=== PATIENT | female | born 1970 | race Caucasian/White ===

== ENCOUNTER 2016-09-30 14:56 | Inpatient (IN) | payer MEDICAID ==
[~2016-09-30] VITALS: Ht 149.9 cm; Wt 79.4 kg
[2016-09-30 15:05] VITALS: BP 164/99; PULSE 104; RESP 16; TEMP 97.7; O2SAT 96
--- NOTE | 2016-09-30 15:13 | NUR ---
Patient triaged and placed in waiting room. Patient appears in no acute distress at this time. Accompanied by SELF, awaiting available bed, and MD notified of need for MSE.
--- NOTE | 2016-09-30 15:13 | NUR ---
Note cliffordprudencio in EDM - 09/30/16 at 1617 by TEAGAN Pt report received from BE Kennedy. Pt c/o urinary frequency and hesitancy since Tuesday. Seen by PMD and Rx Cipro. Pt states that symptoms haven't resolved and she feels worse with generalized abd pain. Pt denies N/V/D.
--- NOTE | 2016-09-30 15:45 | NUR ---
Ana acevedo in ED - 09/30/16 at [address] Smith at bedside to assess pt.
--- NOTE | 2016-09-30 16:00 | NUR ---
Pt placed to ER bed 06 and report received from BE Kennedy. Pt c/o urinary frequency and hesitancy since Tuesday. Seen by PMD and Rx Cipro. Pt states that symptoms haven't resolved and she feels worse with generalized abd pain. Pt denies N/V/D.
--- NOTE | 2016-09-30 16:10 | NUR ---
Dr. Smith at bedside to assess pt.
[2016-09-30 16:11] LABS: BILIRUBIN,URINE NEGATIVE (NEGATIVE); BLOOD, URINE 2+ (NEGATIVE); CLARITY/URINE CLEAR (CLEAR); COLOR,URINE YELLOW (YELLOW); GLUCOSE,URINE NEGATIVE (NEGATIVE); KETONES,URINE NEGATIVE (NEGATIVE); LEUKOCYTE ESTERASE ,URINE 1+ (NEGATIVE); NITRITE, URINE NEGATIVE (NEGATIVE); PH,URINE 6.5 (5.0-8.0); PROTEIN URINE NEGATIVE (NEGATIVE); UROBILINOGEN,URINE 0.2 (0.2-1.0)
[2016-09-30 16:32] LABS: BACTERIA,URINE FEW /HPF (None Seen); WBC,URINE 20-50 /HPF (0-3)
[2016-09-30 16:33] LABS: MUCUS,URINE None Seen /LPF (None Seen)
[2016-09-30] MEDS ORDERED: MORPHINE SULFATE 10 MG/ML VIAL IVP ONE (16:45)
[2016-09-30] MEDS ORDERED: ONDANSETRON HCL 4 MG/2 ML VIAL IVP ONE (16:45)
[2016-09-30] MEDS ORDERED: NACL 0.9% 1,000 ML IV ONE ×2 (16:45→19:30)
[2016-09-30] MEDS ORDERED: cefTRIAXone 1 GM in D5W 50 ML IV ONE (16:45)
[2016-09-30] MEDS ORDERED: cefTRIAXone 1 GM VIAL ONE (16:57)
[2016-09-30 16:59] LABS: BASOPHILS # (AUTO) 0.3 K/uL (0.0-0.2); BASOPHILS % (AUTO) 1.6 % (0.0-2.0); EOSINOPHILS # (AUTO) 0.1 K/uL (0.0-0.4); EOSINOPHILS % (AUTO) 0.8 % (0.0-4.0); HEMATOCRIT 43.1 % (36-48); HEMOGLOBIN 14.1 g/dL (12.0-16.0); LYMPHOCYTES # (AUTO) 1.7 K/uL (1.0-5.5); LYMPHOCYTES % (AUTO) 9.2 % (20.5-51.5); MEAN CORPUSCULAR HEMOGLOBIN 28 pg (27-31); MEAN CORPUSCULAR HGB CONC 33 % (32-36); MEAN CORPUSCULAR VOLUME 86 fL (79.0-98.0); MONOCYTES # (AUTO) 1.2 K/uL (0.0-1.0); MONOCYTES % (AUTO) 6.5 % (1.7-9.3); NEUTROPHILS # (AUTO) 15.3 K/uL (1.8-7.7); NEUTROPHILS % (AUTO) 81.9 % (40.0-70.0); PLATELET COUNT (AUTO) 202 K/uL (130-430); RED BLOOD CELL COUNT(AUTO) 4.99 MIL/uL (4.2-6.2); RED CELL DISTRIBUTION WIDTH 13.5 % (9.0-15.0); WHITE BLOOD COUNT (AUTO) 18.6 K/uL (4.8-10.8)
[2016-09-30 17:09] LABS: CALCIUM 8.3 mg/dL (8.4-11.0); CREATININE 1.13 mg/dL (0.55-1.30); POTASSIUM 3.6 mmol/L (3.5-5.1)
[2016-09-30 17:14] LABS: ALBUMIN 3.2 g/dL (3.4-4.8); TOTAL BILIRUBIN 0.6 mg/dL (0.0-1.0); TOTAL PROTEIN, SERUM 7.6 g/dL (6.4-8.3)
--- NOTE | 2016-09-30 18:00 | NUR ---
Pt denies c/o pain or discomfort, no needs verbalized at this time.
--- NOTE | 2016-09-30 19:40 | NUR ---
ADMISSION NOTE Received patient from ER via sean, received report from ALAINA LR. Patient admitted with diagnosis of PYELONEPHRITIS. Patient oriented to hospital routine, call light, toileting and safety-patient verbalized understanding.
[2016-09-30 19:47] VITALS: BP 151/89; PULSE 98; RESP 18; TEMP 98.2; O2SAT 100
--- NOTE | 2016-09-30 19:49 | NUR ---
Patient will be admitted to care of . Admitted to Med Surg unit. Will go to room 118-B. Belongings list completed. Summary report printed. Report given to BE Cid.
--- NOTE | 2016-09-30 20:30 | NUR ---
2030 UNIT ADMISSION NOTE Patient in bed resting comfortably. She states she is not in pain at the moment. Admitting nurse Jose Roberto LR at the bed side conducting admission assessment. No S/S of distress noted. IV fluids and Levaquin will be administered per MD order. Fall precautions in place.
[2016-09-30] MEDS: LEVOFLOXACIN 500 MG/D5W 100 ML IV SCH (20:58)
[2016-09-30] MEDS: NACL 0.9% 1,000 ML IV SCH (20:59)
[2016-09-30] MEDS ORDERED: LORazepam 2 MG/ML VIAL IVP PRN (21:00)
[2016-09-30] MEDS ORDERED: POTASSIUM CHLORIDE 10 MEQ TAB.PRT.SR PO PRN (21:00)
[2016-09-30] MEDS ORDERED: MAGNESIUM SULFATE 50 ML IV PRN (21:00)
[2016-09-30] MEDS ORDERED: ZOLPIDEM TARTRATE 5 MG TABLET PO PRN (21:00)
[2016-09-30] MEDS ORDERED: DOCUSATE SODIUM 100 MG CAPSULE PO PRN (21:00)
[2016-09-30] MEDS ORDERED: MORPHINE 2 MG/ML INJ. SYRINGE IVP PRN (21:00)
[2016-09-30] MEDS: LACTOBACILLUS RHAMNOSUS GG 1 CAP CAPSULE PO SCH (22:07)
[2016-09-30] MEDS: HEPARIN SODIUM,PORCINE 5000 UNITS/ML VIAL SUBCUT SCH (22:12)
--- NOTE | 2016-09-30 22:30 | NUR ---
2230 ROUNDS Patient in bed resting. She stated that she is in pain and asked for pain medication. Morphine 2 mg PRN given per MD order. No other S/S of distress noted. Patient is alert, oriented X 4. IV fluids are running. Fall precautions in place.
[2016-09-30] MEDS: MORPHINE 2 MG/ML INJ. SYRINGE IVP PRN (23:12)
[2016-10-01] VITALS (7 sets, daily range): BP systolic 129–154; BP diastolic 67–92; PULSE 80–121; RESP 16–20; TEMP 97–99.4; O2SAT 94–98; Ht 149.9 cm; Wt 79.4 kg
--- NOTE | 2016-10-01 00:40 | NUR ---
0040 ROUNDS Patient in bed sleeping. No S/S of distress noted, no pain. Bed in low position, call light within reach.
--- NOTE | 2016-10-01 02:50 | NUR ---
0250 ROUNDS Patient in bed sleeping. No pain or any distress noted. Fall precautions in place.
--- NOTE | 2016-10-01 04:30 | NUR ---
0430 NOTE Patient in bed resting. She stated that she is in increasing pain and she would like her pain medication. The nurse administered Morphine 2 mg PRN per MD order. No other S/S of distress noted. Patient is alert, oriented x 4. Fall precautions in place.
[2016-10-01] MEDS: MORPHINE 2 MG/ML INJ. SYRINGE IVP PRN ×5 (04:33→21:57)
[2016-10-01 06:09] LABS: BASOPHILS # (AUTO) 0.5 K/uL (0.0-0.2); BASOPHILS % (AUTO) 3.3 % (0.0-2.0); EOSINOPHILS # (AUTO) 0.2 K/uL (0.0-0.4); EOSINOPHILS % (AUTO) 1.2 % (0.0-4.0); HEMATOCRIT 41.3 % (36-48); HEMOGLOBIN 13.4 g/dL (12.0-16.0); LYMPHOCYTES # (AUTO) 1.6 K/uL (1.0-5.5); LYMPHOCYTES % (AUTO) 10.6 % (20.5-51.5); MEAN CORPUSCULAR HEMOGLOBIN 28 pg (27-31); MEAN CORPUSCULAR HGB CONC 33 % (32-36); MEAN CORPUSCULAR VOLUME 86 fL (79.0-98.0); MONOCYTES # (AUTO) 1.2 K/uL (0.0-1.0); MONOCYTES % (AUTO) 7.9 % (1.7-9.3); NEUTROPHILS # (AUTO) 11.5 K/uL (1.8-7.7); PLATELET COUNT (AUTO) 205 K/uL (130-430); RED CELL DISTRIBUTION WIDTH 13.6 % (9.0-15.0)
[2016-10-01 06:12] LABS: CALCIUM 7.8 mg/dL (8.4-11.0); CREATININE 1.1 mg/dL (0.55-1.30); POTASSIUM 3.9 mmol/L (3.5-5.1)
--- NOTE | 2016-10-01 07:30 | NUR ---
FINAL NOTE - [employer] Patient in bed resting comfortably. Her primary doctor Dr. Gregory placed an order for CT-scan of the abdomen which requires the patient to be NPO. That information was conveyed to the day shift nurse Alem LR as well as to the patient. No S/S of distress or pain noted. PAtient's needs met throughout the whole shift. Report given to the day shift nurse Alem LR.
--- NOTE | 2016-10-01 07:30 | NUR ---
am notes: patient is aaox 4. afebrile. vss stable. on npo status for ct of abdomen and pelves soon. lungs bilaterally clear. abdomen soft and non distended. no pain nor distress noted. has iv access on the left ac #20. with normal saline at 90cc/hr infusing on well. call lights within reach. safety measures maintained. informed patient to call for assistance. bed in low position.
[2016-10-01] MEDS: NACL 0.9% 1,000 ML IV SCH ×2 (07:46→21:49)
[2016-10-01] MEDS ORDERED: DIATR MEGLU/DIATRIZ SOD 30 ML SOLUTION PO ONE (08:39)
--- NOTE | 2016-10-01 08:50 | NUR ---
complained of pain. morphine 2mg iv given. made comfortable. still on npo status. heparin sodium subcu given left abdomen.
[2016-10-01] MEDS: HEPARIN SODIUM,PORCINE 5000 UNITS/ML VIAL SUBCUT SCH ×2 (08:52→22:05)
--- NOTE | 2016-10-01 09:40 | NUR ---
oral contrast given by radiologist at the bedside and explained the procedure.
--- NOTE | 2016-10-01 11:00 | NUR ---
order picker by radiologist for ct of abdomen and pelves.
[2016-10-01] MEDS: LACTOBACILLUS RHAMNOSUS GG 1 CAP CAPSULE PO SCH ×2 (12:43→21:55)
--- NOTE | 2016-10-01 12:48 | NUR ---
morphine 2 mg iv given. assists on adls.
--- NOTE | 2016-10-01 13:00 | NUR ---
morphine 2 mg iv given at this time. assisted to the bathroom
--- NOTE | 2016-10-01 15:53 | NUR ---
CALLED ATTENDING MD DR PALACIOS, RE: RESULTS OF THE CT OF ABD. SPOKE TO NESTOR
--- NOTE | 2016-10-01 15:56 | NUR ---
CT ABDOMEN/PELVIS RESULT SUZANNE Holcomb INFORMED WILL CONTINUE TO MONITOR.
[2016-10-01] MEDS: ONDANSETRON HCL 4 MG/2 ML VIAL IVP PRN (17:20)
--- NOTE | 2016-10-01 17:30 | NUR ---
morphine 2 mg iv given. made comfortable.
--- NOTE | 2016-10-01 19:40 | NUR ---
sbar report given to incoming nurse Dionisio LR
--- NOTE | 2016-10-01 19:50 | NUR ---
initial nursing notes: Patient is awake. Patient has IV fluid infusing on the left forearm IV access. Patient denies of having pain at this time.
--- NOTE | 2016-10-01 21:50 | NUR ---
nursing rounds: Patient will receive pain medication for her abdominal pain. Will recheck patient's pain level a few minutes after receiving pain medication.
[2016-10-01] MEDS: LEVOFLOXACIN 500 MG/D5W 100 ML IV SCH (21:52)
--- NOTE | 2016-10-01 22:30 | NUR ---
nursing rounds: Patient stated that the pain medication was effective. Patient stated that her abdominal pain was gone.
[2016-10-02] VITALS (8 sets, daily range): BP systolic 125–149; BP diastolic 77–86; PULSE 88–111; RESP 16–18; TEMP 96.3–99; O2SAT 93–98
--- NOTE | 2016-10-02 00:15 | NUR ---
Rounds Patient is currently resting in bed. Call light is within reach. Instructed to use it whenever in need of assistance.
--- NOTE | 2016-10-02 00:30 | NUR ---
nursing rounds: Patient is asleep in bed. Patient has no shortness of breath.
--- NOTE | 2016-10-02 02:30 | NUR ---
nursing rounds: Patient is sleeping in bed. Call light within patient's reach.
[2016-10-02] MEDS: MORPHINE 2 MG/ML INJ. SYRINGE IVP PRN ×2 (02:41→09:16)
[2016-10-02] MEDS: ONDANSETRON HCL 4 MG/2 ML VIAL IVP PRN ×2 (02:42→09:22)
--- NOTE | 2016-10-02 04:30 | NUR ---
nursing rounds: Patient received another dose of pain medication for her abdominal pain. Patient is currently asleep with no respiratory distress.
[2016-10-02] MEDS: NACL 0.9% 1,000 ML IV SCH ×2 (05:43→20:59)
--- NOTE | 2016-10-02 06:16 | NUR ---
nursing rounds: Patient is ambulatory to the bathroom with a stable gait.
[2016-10-02 07:14] LABS: HEMATOCRIT 42.4 % (36-48); HEMOGLOBIN 13.7 g/dL (12.0-16.0); MEAN CORPUSCULAR HEMOGLOBIN 28 pg (27-31); MEAN CORPUSCULAR HGB CONC 32 % (32-36); MEAN CORPUSCULAR VOLUME 86 fL (79.0-98.0); PLATELET COUNT (AUTO) 196 K/uL (130-430); RED BLOOD CELL COUNT(AUTO) 4.95 MIL/uL (4.2-6.2); RED CELL DISTRIBUTION WIDTH 13.2 % (9.0-15.0); WHITE BLOOD COUNT (AUTO) 10.6 K/uL (4.8-10.8)
[2016-10-02 07:24] LABS: CALCIUM 8.4 mg/dL (8.4-11.0); CREATININE 1.07 mg/dL (0.55-1.30); POTASSIUM 3.8 mmol/L (3.5-5.1)
--- NOTE | 2016-10-02 07:25 | NUR ---
am notes: patient aaox 4. afebrile. vss stable. lungs bilaterally clear. abdomen soft but bit distended. has iv access on the left ac #20 with normal saline at 90cc/hr infusing on well. call lights within reach. safety measures maintained. informed patient to call for assistance. no pain nor distress noted at the time. bed in low position.
--- NOTE | 2016-10-02 07:33 | NUR ---
closing nursing notes: Patient is awake, alert and oriented X 4. Patient is in no acute respiratory distress. No episodes of fall and no injuries throughout the shift supervisor rn. Provided nursing report to incoming morning shift nurse, BE Ferrara, at patient's bedside.
[2016-10-02 07:55] LABS: BASOPHILS % (MANUAL) 0 % (0-2); EOSINOPHILS % (MANUAL) 1 % (0-7); LYMPHOCYTES % (MANUAL) 11 % (20-46); MONOCYTES % (MANUAL) 11 % (0-11)
[2016-10-02] MEDS: LACTOBACILLUS RHAMNOSUS GG 1 CAP CAPSULE PO SCH ×2 (09:09→21:00)
--- NOTE | 2016-10-02 09:16 | NUR ---
morphine 2 mg iv given. instructed to walk more often
[2016-10-02] MEDS: HEPARIN SODIUM,PORCINE 5000 UNITS/ML VIAL SUBCUT SCH ×2 (09:22→21:04)
--- NOTE | 2016-10-02 09:24 | NUR ---
due medication given. sitting on chair
[2016-10-02] MEDS ORDERED: BISACODYL 10 MG/SUPPOSITORY RC ONE (09:45)
[2016-10-02] MEDS ORDERED: LEVO500T20 PO (09:45)
[2016-10-02] MEDS ORDERED: BISACODYL 5 MG TABLET.DR (DULCOLAX) PO ONE (09:45)
--- NOTE | 2016-10-02 09:46 | NUR ---
Dr Gregory came and see the patient. informed Alem LR patient can go home today, if patient was able to defecate. and made orders
--- NOTE | 2016-10-02 10:14 | NUR ---
Notes Registered preferred pharmacy ([facility] has been called and verified prescription for levaquin has been received.
--- NOTE | 2016-10-02 12:00 | NUR ---
tried to go the bathroom twice. but no bowel movement yet. passing gas only.
--- NOTE | 2016-10-02 14:00 | NUR ---
ambulate in the hallway many times. passing gas.
[2016-10-02] MEDS ORDERED: NA PHOS,M-B/NA PHOS,DI-BA 118 ML (FLEET ENEMA) RC ONE ×2 (14:30→20:15)
--- NOTE | 2016-10-02 16:00 | NUR ---
had prune juice x 2. able to ambulate to the hallway many times. patient is passing out gases many times.
[2016-10-02] MEDS: ACETAMINOPHEN 325 MG TABLET PO PRN (16:01)
--- NOTE | 2016-10-02 18:22 | NUR ---
paged for Dr Gregory, dialed . s/w Lynda.
--- NOTE | 2016-10-02 18:36 | NUR ---
awaiting for Dr Gregory to call back to hold discharge patient is so bloated at this time. not able to defecate..
--- NOTE | 2016-10-02 18:39 | NUR ---
a new iv access placed at the left forearm #22. saline lock.
--- NOTE | 2016-10-02 19:01 | NUR ---
Agustín called Dr Gregory a second call.
--- NOTE | 2016-10-02 19:05 | NUR ---
second page for Dr Gregory, dialed . s/w Lynda.
--- NOTE | 2016-10-02 19:30 | NUR ---
sbar report given to incoming nurse Prudencio LR
--- NOTE | 2016-10-02 19:41 | NUR ---
PAGED DR PALACIOS: LEFT VOICEMAIL, NO LIVE ANSWER SERVICE [phone]
--- NOTE | 2016-10-02 19:57 | NUR ---
Dr Gregory's answering service returned call. s/w Lynda, stated that they will try to get a hold of Dr Gregory.
--- NOTE | 2016-10-02 20:08 | NUR ---
Opening Note Report received from the day shift RN. Patient is in stable condition. Is inquiring if she is being discharged today. Patient has not had a bowl movement despite of PRN medications received during the day. Will follow up with Dr. Gregory. IV is on the LFA 22g running NS@90ml/hr. Call light is within reach. Instructed patient to use it whenever in need of assistance.
--- NOTE | 2016-10-02 20:30 | NUR ---
Spoke with MD Spoke with Dr. Gregory. Explained to MD that patient has not had a bowl movement. Orders for fleet enema x 2 time were received. MD also stated to hold dc if patient does not have a bowl movement by 2200.
[2016-10-02] MEDS: LEVOFLOXACIN 500 MG/D5W 100 ML IV SCH (21:00)
--- NOTE | 2016-10-02 22:20 | NUR ---
Rounds Administered two fleet enema to patient per MD order. Patient was not able to have a bowl movement. Will hold discharge for tonight. Patient stated she noticed bloody vaginal discharge when wiping. Will follow up with Dr. Gregory.
--- NOTE | 2016-10-03 00:15 | NUR ---
Rounds Patient is resting in bed. Call light is within reach. Instructed to use it whenever in need of assistance.
[2016-10-03 00:30] VITALS: BP 139/84; PULSE 87; RESP 18; TEMP 97.8
--- NOTE | 2016-10-03 02:15 | NUR ---
Rounds Patient is resting in bed. Call light is within reach.
[2016-10-03] MEDS: MORPHINE 2 MG/ML INJ. SYRINGE IVP PRN ×5 (03:44→20:48)
--- NOTE | 2016-10-03 04:15 | NUR ---
Rounds Patient is currently sleeping in bed. Call light is within reach.
[2016-10-03 04:30] VITALS: BP 136/86; PULSE 84; RESP 18; TEMP 98.3; O2SAT 95
--- NOTE | 2016-10-03 06:26 | NUR ---
Opening Note Patient is currently resting in bed. Call light is within reach. Instructed to use it whenever in need of assistance. IV is on the [employer] 22g running NS@90. Will give report to the oncoming nurse.
[2016-10-03 07:06] LABS: HEMATOCRIT 39.9 % (36-48); HEMOGLOBIN 13.3 g/dL (12.0-16.0); MEAN CORPUSCULAR HEMOGLOBIN 28 pg (27-31); MEAN CORPUSCULAR HGB CONC 33 % (32-36); MEAN CORPUSCULAR VOLUME 85 fL (79.0-98.0); PLATELET COUNT (AUTO) 198 K/uL (130-430); RED BLOOD CELL COUNT(AUTO) 4.67 MIL/uL (4.2-6.2); RED CELL DISTRIBUTION WIDTH 13.1 % (9.0-15.0)
[2016-10-03 07:19] LABS: CALCIUM 8.2 mg/dL (8.4-11.0); CREATININE 1.05 mg/dL (0.55-1.30); POTASSIUM 3.8 mmol/L (3.5-5.1)
[2016-10-03 07:36] LABS: WHITE BLOOD COUNT (AUTO) 8.1 K/uL (4.8-10.8)
[2016-10-03 08:04] VITALS: BP 140/81; PULSE 98; RESP 18; TEMP 98.3; O2SAT 98
[2016-10-03] MEDS: LACTOBACILLUS RHAMNOSUS GG 1 CAP CAPSULE PO SCH ×2 (08:06→20:47)
[2016-10-03] MEDS: HEPARIN SODIUM,PORCINE 5000 UNITS/ML VIAL SUBCUT SCH (08:09)
--- NOTE | 2016-10-03 09:21 | NUR ---
AM ROUNDS: No s/s of distress noted. Will continue to monitor.
[2016-10-03 09:57] LABS: ATYPICAL LYMPHOCYTES % 0 % (0-0); BAND % (MANUAL) 5 % (0-6); BASOPHILS % (MANUAL) 0 % (0-2); EOSINOPHILS % (MANUAL) 0 % (0-7); LYMPHOCYTES % (MANUAL) 15 % (20-46); MONOCYTES % (MANUAL) 19 % (0-11)
--- NOTE | 2016-10-03 10:11 | NUR ---
PATIENT RESTING: Patient resting quietly. No acute distress noted. Vital signs within normal range.
[2016-10-03] MEDS: NACL 0.9% 1,000 ML IV SCH ×2 (10:16→15:03)
[2016-10-03] MEDS ORDERED: NA PHOS,M-B/NA PHOS,DI-BA 118 ML (FLEET ENEMA) RC ONE (10:45)
[2016-10-03] MEDS ORDERED: MILK OF MAGNESIA 30 ML UDC PO ONE (10:45)
[2016-10-03] MEDS ORDERED: LACTULOSE 20 GM/30 ML UDC PO ONE (10:45)
--- NOTE | 2016-10-03 11:37 | NUR ---
PATIENT OFF FLOOR: To X-ray for KUB.
--- NOTE | 2016-10-03 11:58 | NUR ---
OBGYN consult: called consult for Dr. roblero (Laura Espinoza is cotton tier), regarding vaginal bleed, ordered by Colt, spoke with Nyla.
[2016-10-03 12:00] VITALS: BP 151/90; PULSE 105; RESP 20; TEMP 99.1; O2SAT 96
--- NOTE | 2016-10-03 12:17 | NUR ---
ROUNDS: Patient still off floor.
--- NOTE | 2016-10-03 13:13 | NUR ---
RETURNED FROM FLOOR: Patient returned from X-ray.
--- NOTE | 2016-10-03 13:30 | NUR ---
COMMUNICATION: Spoke with Dr. Gaytan who is occupational ther for Dr. Martinez. Dr. Gaytan states he does not come to this hospital and to find another consulting doctor.
--- NOTE | 2016-10-03 13:39 | NUR ---
OBGYN Consult: for Dr. Choe, regarding vaginal bleed, ordered by Dr. Gregory, spoke with
--- NOTE | 2016-10-03 14:10 | NUR ---
PATIENT RESTING: Patient resting quietly. No acute distress noted. Vital signs within normal range.
--- NOTE | 2016-10-03 14:15 | NUR ---
COMMUNICATION: Dr. Choe called back. Will not see patient. Will see [facility] patients only.
--- NOTE | 2016-10-03 14:21 | NUR ---
OB Consult: for Dr. Tarun Sweeney (Dr. Lagos is road freight conductor), regarding vaginal bleed, ordered by Dr. Gregory, spoke with Nyla.
[2016-10-03 16:00] VITALS: BP 145/87; PULSE 102; RESP 20; TEMP 100; O2SAT 96
--- NOTE | 2016-10-03 16:05 | NUR ---
PATIENT RESTING: Patient resting quietly. No acute distress noted. Vital signs within normal range.
[2016-10-03] MEDS: ACETAMINOPHEN 325 MG TABLET PO PRN (16:58)
[2016-10-03 17:54] VITALS: TEMP 99.1
--- NOTE | 2016-10-03 18:00 | NUR ---
CLOSING NOTE: All needs met. Multiple bowel movements today, Dr. Gregory is aware. OB to see patient tomorrow. Will endorse to NOC shift nurse.
--- NOTE | 2016-10-03 20:00 | NUR ---
ROUNDS PATIENT AWAKE, ALERT, ORIENTED, VITALS STABLE, DENIES ANY PAIN AND DISCOMFORT AT THIS TIME. ASSESSMENT DONE AND DOCUMENTED. SEE FLOWSHEET. NEEDS ATTENDED TO. SAFETY PRECAUTION MEASURES IN PLACED. BED IN LOW AND LOCKED POSITION. CALL LIGHT PLACED WITH PATIENT.
[2016-10-03] MEDS: LEVOFLOXACIN 500 MG/D5W 100 ML IV SCH (20:47)
--- NOTE | 2016-10-04 | NUR ---
PATIENT RESTING: Patient resting quietly. No acute distress noted. Vital signs within normal range.
[2016-10-04 00:14] VITALS: BP 154/86; PULSE 116; RESP 20; TEMP 99.7; O2SAT 98
[2016-10-04] MEDS: MORPHINE 2 MG/ML INJ. SYRINGE IVP PRN ×4 (01:23→20:34)
[2016-10-04] MEDS: NACL 0.9% 1,000 ML IV SCH ×2 (01:29→13:10)
--- NOTE | 2016-10-04 02:00 | NUR ---
ROUNDS PATIENT ASLEEP, NO SOB NOTED, WILL CONTINUE TO MONITOR.
--- NOTE | 2016-10-04 04:00 | NUR ---
PATIENT RESTING: Patient resting quietly. No acute distress noted. Vital signs within normal range.
[2016-10-04 04:24] VITALS: BP 133/77; PULSE 113; RESP 20; TEMP 97.8; O2SAT 92
--- NOTE | 2016-10-04 06:22 | NUR ---
CLOSING NOTES PATIENT STABLE, ALL NEEDS MET, SAFETY AND FALL PRECAUTION MEASURES MAINTAINED. BED IN LOW AND LOCKED POSITION. CALL LIGHT PLACED WITHIN REACH.
[2016-10-04 06:48] LABS: CALCIUM 8.1 mg/dL (8.4-11.0); CREATININE 1.01 mg/dL (0.55-1.30); POTASSIUM 4.1 mmol/L (3.5-5.1)
[2016-10-04 06:52] LABS: HEMATOCRIT 40.5 % (36-48); HEMOGLOBIN 13.3 g/dL (12.0-16.0); MEAN CORPUSCULAR HEMOGLOBIN 28 pg (27-31); MEAN CORPUSCULAR HGB CONC 33 % (32-36); MEAN CORPUSCULAR VOLUME 85 fL (79.0-98.0); PLATELET COUNT (AUTO) 199 K/uL (130-430); RED BLOOD CELL COUNT(AUTO) 4.76 MIL/uL (4.2-6.2); RED CELL DISTRIBUTION WIDTH 13.2 % (9.0-15.0); WHITE BLOOD COUNT (AUTO) 7.8 K/uL (4.8-10.8)
--- NOTE | 2016-10-04 07:45 | NUR ---
INITIAL NOTE Received pt in bed, no s/s of distress or sob noted, pt has no c/o pain at this time, pt in stable condition. Pt alert and oriented x4, verbal. Bed at lowest position, call light within reach, will continue to monitor pt for any changes, fall precautions in place.
[2016-10-04 08:01] VITALS: BP 128/82; PULSE 99; RESP 18; TEMP 98.7; O2SAT 95
[2016-10-04 08:13] LABS: BASOPHILS % (MANUAL) 0 % (0-2); EOSINOPHILS % (MANUAL) 0 % (0-7); LYMPHOCYTES % (MANUAL) 19 % (20-46); MONOCYTES % (MANUAL) 12 % (0-11)
[2016-10-04] MEDS: LACTOBACILLUS RHAMNOSUS GG 1 CAP CAPSULE PO SCH ×2 (08:42→20:33)
--- NOTE | 2016-10-04 10:19 | NUR ---
Rounds Pt in bed, no s/s of distress or sob noted, pt has no c/o pain at this time, pt in stable condition, pt resting comfortably, will continue to monitor pt for any changes.
[2016-10-04] MEDS: ACETAMINOPHEN 325 MG TABLET PO PRN (13:44)
[2016-10-04 13:45] VITALS: BP 134/88; PULSE 91; RESP 18; TEMP 98.6; O2SAT 98
--- NOTE | 2016-10-04 15:17 | NUR ---
PT TRANSFERRED Report given to Erlinda arnold [place]. Transfer packet with Transfer Orders and Medication Reconciliation form given to EMT with report. Exitcare provided. [facility] ID band removed, replaced with ID band with pt's name and . IV catheter removed, intact and dressing applied, no active bleeding. All belongings sent with patient. Patient left floor via gurney escorted by EMT in no distress. Family notified of transfer. Addendum: 10/04/16 at 1518 by Kamala Cali RN note not for this patient
[2016-10-04 17:18] VITALS: BP 122/86; PULSE 98; RESP 17; TEMP 98.6; O2SAT 97
--- NOTE | 2016-10-04 18:23 | NUR ---
FOLLOW-UP ON CONSULT CONSULTATION PAGED REASON FOR CONSULTATION:VAGINAL BLEEDING WAS CONSULT CALLED?Y PERSON WHO WAS NOTIFIED:LO[place] CONSULTING PHYSICIAN:BRENDON BUSTAMANTE ([employer]) CHEMIST SPECIALTY:OBGYN CHEMIST PHONE NUMBER:[phone]
--- NOTE | 2016-10-04 18:36 | NUR ---
CLOSING NOTE Pt in bed, no s/s of distress or sob noted, pt has no c/o pain at this time, pt in stable condition. Pt alert and oriented x4, verbal. Bed at lowest position, call light within reach, will endorse care of pt to incoming nurse, fall precautions in place. Dr Sweeney paged and spoke with exchange Dr Lagos is web application tester and made aware of consult.
[2016-10-04 19:30] VITALS: BP 145/99; PULSE 91; RESP 18; TEMP 97.3; O2SAT 98
--- NOTE | 2016-10-04 19:30 | NUR ---
PM ASSESSMENT PT. A/OX4, VITAL SIGNS STABLE, NO DISTRESS NOTED, DENIES PAIN, UPDATED WITH PLAN OF CARE, CALL LIGHT WITHIN REACH, ENCOURAGED PT. TO USE CALL LIGHT FOR ASSISTANCE, CALL LIGHT WITHIN REACH, WILL CONTINUE TO MONITOR.
[2016-10-04] MEDS: LEVOFLOXACIN 500 MG/D5W 100 ML IV SCH (20:33)
--- NOTE | 2016-10-04 20:34 | NUR ---
PAIN PT. C/O LEFT LOWER BACK "ACHING PAIN RATED 7/10", MORPHINE 2 MG IVP GIVEN ORDERED, VITAL SIGNS STABLE, NO DISTRESS NOTED, WILL CONTINUE TO MONITOR.
[2016-10-04] MEDS: ONDANSETRON HCL 4 MG/2 ML VIAL IVP PRN (20:40)
--- NOTE | 2016-10-04 20:40 | NUR ---
NAUSEA PT. C/O NAUSEA, ZOFRAN 4MG IVP GIVEN ORDERED, WILL CONTINUE TO MONITOR.
--- NOTE | 2016-10-04 22:00 | NUR ---
RN ROUNDS PT. RESTING QUIETLY, VITAL SIGNS STABLE, NO DISTRESS NOTED, CALL LIGHT WITHIN REACH, WILL CONTINUE TO MONITOR.
[2016-10-05] VITALS: BP 141/95; PULSE 90; RESP 18; TEMP 97.6; O2SAT 97
--- NOTE | 2016-10-05 | NUR ---
RN ROUNDS PT. RESTING QUIETLY, VITAL SIGNS STABLE, NO DISTRESS NOTED, CALL LIGHT WITHIN REACH, WILL CONTINUE TO MONITOR.
[2016-10-05] MEDS: ONDANSETRON HCL 4 MG/2 ML VIAL IVP PRN ×2 (01:11→08:11)
[2016-10-05] MEDS: NACL 0.9% 1,000 ML IV SCH ×2 (01:12→11:10)
[2016-10-05] MEDS: MORPHINE 2 MG/ML INJ. SYRINGE IVP PRN (01:12)
--- NOTE | 2016-10-05 01:12 | NUR ---
PAIN AND NAUSEA PT. C/O LEFT LOWER BACK PAIN RATED 7/10 AND NAUSEA, ZOFRAN 4 MG IVP GIVEN AND MORPHINE 2 MG IVP GIVEN ORDERED. CALL LIGHT WITHIN REACH, WILL CONTINUE TO MONITOR.
--- NOTE | 2016-10-05 02:17 | NUR ---
INSOMNIA PT. C/O INSOMNIA, AMBIEN 10 MG PO GIVEN ORDERED. CALL LIGHT WITHIN REACH, WILL CONTINUE TO MONITOR
[2016-10-05 04:00] VITALS: BP 138/96; PULSE 88; RESP 18; TEMP 97.1; O2SAT 98
--- NOTE | 2016-10-05 04:00 | NUR ---
RN ROUNDS PT. RESTING QUIETLY, VITAL SIGNS STABLE, NO DISTRESS NOTED, CALL LIGHT WITHIN REACH, WILL CONTINUE TO MONITOR.
--- NOTE | 2016-10-05 06:00 | NUR ---
RN ROUNDS PT. RESTING QUIETLY, VITAL SIGNS STABLE, NO DISTRESS NOTED, CALL LIGHT WITHIN REACH, WILL CONTINUE TO MONITOR.
[2016-10-05 06:29] LABS: HEMOGLOBIN 13.4 g/dL (12.0-16.0); MEAN CORPUSCULAR HEMOGLOBIN 28 pg (27-31); MEAN CORPUSCULAR HGB CONC 34 % (32-36); MEAN CORPUSCULAR VOLUME 85 fL (79.0-98.0); PLATELET COUNT (AUTO) 212 K/uL (130-430); RED BLOOD CELL COUNT(AUTO) 4.71 MIL/uL (4.2-6.2); RED CELL DISTRIBUTION WIDTH 13.4 % (9.0-15.0); WHITE BLOOD COUNT (AUTO) 4.5 K/uL (4.8-10.8)
--- NOTE | 2016-10-05 06:32 | NUR ---
CLOSING NOTES PT. RESTING QUIETLY, VITAL SIGNS STABLE, NO DISTRESS NOTED, DENIES PAIN, CALL LIGHT WITHIN REACH, IV ACCESS PATENT AND BENIGN.
[2016-10-05 06:33] LABS: CREATININE 0.84 mg/dL (0.55-1.30); POTASSIUM 3.7 mmol/L (3.5-5.1)
[2016-10-05] MEDS: LACTOBACILLUS RHAMNOSUS GG 1 CAP CAPSULE PO SCH (08:11)
[2016-10-05 08:13] VITALS: BP 100/66; PULSE 83; RESP 16; TEMP 97.4; O2SAT 92
--- NOTE | 2016-10-05 08:17 | NUR ---
AM ROUNDS Patient received, alert awake and oriented x4. VSS. Patient denies pain at this time. Reports minimal vaginal bleeding. IV site patent and intact. IVF infusing as ordered. Patient tolerated breakfast well. Reports nausea, denies nausea and vomiting at this time. Medication given as indicated. Patient ambulatory, able to void without difficulty patient states small bowel movement last night. Plan of care discussed, patient verbalized understanding. Safety and fall precautions in place, call light within reach. Will continue to monitor.
--- NOTE | 2016-10-05 08:51 | NUR ---
Blood culture collected 10/02.
--- NOTE | 2016-10-05 09:14 | NUR ---
Dr. Sweeney at bedside. Patient okay to be discharged per MD. Written prescription of Aygestin given. Patient educated on new medication, patient verbalized understanding and has no further questions at this time. Will refer to pharmacy to follow up education.
[2016-10-05 10:24] LABS: ATYPICAL LYMPHOCYTES % 2 % (0-0); BAND % (MANUAL) 3 % (0-6); BASOPHILS % (MANUAL) 0 % (0-2); EOSINOPHILS % (MANUAL) 3 % (0-7); LYMPHOCYTES % (MANUAL) 49 % (20-46); MONOCYTES % (MANUAL) 18 % (0-11)
--- NOTE | 2016-10-05 10:26 | NUR ---
ROUNDS Patient resting in bed at this time, reports 6/10 back pain. Educated patient on pain management and relaxation techniques. Medication to be given as indicated. No further needs at this time. Safety and fall precautions in place, call light within reach. Will continue to monitor. Addendum: 10/05/16 at 1033 by Yana Ellis RN Patient did not want indicated pain medication at this time. Requested Tylenol instead. Medication to be given per patients request.
[2016-10-05] MEDS: ACETAMINOPHEN 325 MG TABLET PO PRN (10:34)
[2016-10-05 12:00] VITALS: BP 125/75; PULSE 84; RESP 16; TEMP 97.2; O2SAT 97
--- NOTE | 2016-10-05 12:17 | NUR ---
ROUNDS Patient denies pain nausea or vomiting at this time. Patient awaiting discharge at this time. Requested to take a shower. Supplies given, will monitor.
[2016-10-05 13:34] VITALS: BP 105/69; PULSE 80; RESP 16; TEMP 98.8; O2SAT 97
--- NOTE | 2016-10-05 14:38 | NUR ---
ROUNDS Patient sleeping, easily aroused. Denies pain, nausea, and vomiting at this time. No further needs. Will continue to monitor.
[2016-10-05 16:00] VITALS: BP 111/68; PULSE 86; RESP 18; TEMP 97.5; O2SAT 97
--- NOTE | 2016-10-05 16:38 | NUR ---
D/C Patient Patient given medication reconciliation form and D/C instructions. Exit Care provided. Patient verbalized understanding. MD discussed with patient the results and treatment provided. Ambulatory with steady gait for discharge to home. Patient in stable condition, ID band removed. IV catheter removed, intact and dressing applied, no active bleeding. Rx of Levaquin sent to [facility] pharmacy and Rx of Aygestin given. Patient educated on pain management. All belongings sent with patient.
== END 2016-10-05 16:40 | disposition home or self-care (01) | DRG 720 ==
LOC: SED 14:56 → SMU 19:21
PROVIDERS: ADMIT General Practice; ATTEND General Practice
DX: A41.9 Sepsis, unspecified organism (principal); E44.1 Mild protein-calorie malnutrition; M32.9 Systemic lupus erythematosus, unspecified; N12 Tubulo-interstitial nephritis, not specified as acute or chronic; E66.9 Obesity, unspecified; K59.00 Constipation, unspecified; N93.8 Other specified abnormal uterine and vaginal bleeding; Z87.440 Personal history of urinary (tract) infections; Z68.35 Body mass index [BMI] 35.0-35.9, adult; Z90.49 Acquired absence of other specified parts of digestive tract; T45.515A Adverse effect of anticoagulants, initial encounter
CPT/HCPCS: 36415; 71010; 74000-TC; 76856-TC; 80048; 80053; 81000-TC; 81025; 83605; 83690-TC; 83735-TC; 84484; 85007; 85025; 85027; 87040-TC; 87086; 93005; 96361; 96374; 96375; 99285; J0696; J1644; J1956; J2270; J2405; J7030; Q9964

== ENCOUNTER 2020-02-26 09:31 | Emergency (ER) | payer MEDICAID ==
[~2020-02-26] VITALS: Ht 149.9 cm; Wt 83.9 kg
[~2020-02-26 09:31] MED LIST: LEVO500T20 PO
[2020-02-26 09:40] VITALS: BP_SYST 160
--- NOTE | 2020-02-26 09:45 | NUR ---
Patient to ER bed 3 to gown for evaluation. Side rails up. Report given to BE Metcalf.
--- NOTE | 2020-02-26 09:50 | NUR ---
Patient presented to ER C/O urinary pain. Patient A&Ox4, afebrile, ambulatory to ER, skin pink and warm, pain 01/31, denies N/V/D. Patient states she has urinary freequency, pain and fever since last night.
--- NOTE | 2020-02-26 10:00 | NUR ---
ER Dr. Hartley at bedside examining patient.
--- NOTE | 2020-02-26 10:29 | NUR ---
Note cliffordprudencio in ED - 02/26/20 at 1034 by SDEDTD Patient presented to ER C/O urinary pain. Patient A&Ox4, afebrile, ambulatory to ER, skin pink and warm, pain 01/31, denies N/V/D. Patient states she has urinary freequency, pain and fever since last night.
[2020-02-26 10:46] LABS: CALCIUM 8.9 mg/dL (8.4-11.0); CREATININE 0.64 mg/dL (0.55-1.30)
[2020-02-26 10:56] LABS: POTASSIUM 2.8 mmol/L (3.5-5.1)
[2020-02-26] MEDS ORDERED: POTASSIUM CHLORIDE 20 MEQ TAB.PRT.SR PO ONE (11:30)
--- NOTE | 2020-02-26 11:30 | NUR ---
PT SITTING UP IN TRAE AA&OX4
[2020-02-26 12:30] VITALS: BP_SYST 144
--- NOTE | 2020-02-26 12:30 | NUR ---
Patient given written and verbal discharge instructions and verbalizes understanding. ER MD discussed with patient the results and treatment provided. Patient in stable condition. ID arm band removed. Rx of KEFLEX, TRAMADOL, K-DUR given. Patient educated on pain management and to follow up with PMD. Pain Scale 3/10. Opportunity for questions provided and answered. Medication side effect fact sheet provided.
== END 2020-02-26 12:30 | disposition home or self-care (01) ==
LOC: SED 09:31
DX: N39.0 Urinary tract infection, site not specified (principal); E87.6 Hypokalemia
CPT/HCPCS: 36415; 80048; 81002; 81025; 99283

== ENCOUNTER 2020-04-23 18:15 | Emergency (ER) | payer MEDICAID ==
[~2020-04-23] VITALS: Ht 149.9 cm; Wt 62.1 kg
[2020-04-23 18:15] VITALS: BP_SYST 228
[2020-04-23] MEDS ORDERED: cloNIDine HCL 0.1 MG TABLET PO ONE (19:00)
[2020-04-23 20:00] VITALS: BP_SYST 201
== END 2020-04-23 20:00 | disposition home or self-care (01) ==
LOC: SED 18:15
DX: M25.511 Pain in right shoulder (principal); Z90.49 Acquired absence of other specified parts of digestive tract
CPT/HCPCS: 99283

== ENCOUNTER 2020-04-29 16:56 | Emergency (ER) | payer MEDICAID ==
[~2020-04-29] VITALS: Ht 149.9 cm; Wt 85.3 kg
[2020-04-29 17:01] VITALS: BP_SYST 208
[2020-04-29] MEDS ORDERED: valACYclovir HCL 500 MG TABLET PO ONE (18:30)
[2020-04-29] MEDS ORDERED: ONDANSETRON HCL 4 MG/2 ML VIAL IVP ONE (18:30)
[2020-04-29] MEDS ORDERED: NACL 0.9% 1,000 ML IV ONE (18:30)
[2020-04-29] MEDS ORDERED: MORPHINE 2 MG/ML INJ. SYRINGE IVP ONE (18:30)
[2020-04-29] MEDS ORDERED: cefTRIAXone 1 GM in D5W 50 ML IV ONE (18:30)
[2020-04-29 19:12] LABS: BASOPHILS # (AUTO) 0.1 K/uL (0.0-0.2); BASOPHILS % (AUTO) 1.2 % (0.0-2.0); EOSINOPHILS # (AUTO) 0.2 K/uL (0.0-0.4); EOSINOPHILS % (AUTO) 3.2 % (0.0-4.0); HEMATOCRIT 44.2 % (36-48); HEMOGLOBIN 14.6 g/dL (12.0-16.0); LYMPHOCYTES # (AUTO) 2.1 K/uL (1.0-5.5); LYMPHOCYTES % (AUTO) 30.7 % (20.5-51.5); MEAN CORPUSCULAR HEMOGLOBIN 28 pg (27-31); MEAN CORPUSCULAR HGB CONC 33 % (32-36); MEAN CORPUSCULAR VOLUME 86 fL (79.0-98.0); MONOCYTES # (AUTO) 0.7 K/uL (0.0-1.0); MONOCYTES % (AUTO) 9.7 % (1.7-9.3); NEUTROPHILS # (AUTO) 3.8 K/uL (1.8-7.7); NEUTROPHILS % (AUTO) 55.2 % (40.0-70.0); PLATELET COUNT (AUTO) 218 K/uL (130-430); RED BLOOD CELL COUNT(AUTO) 5.16 MIL/uL (4.2-6.2); RED CELL DISTRIBUTION WIDTH 14.4 % (9.0-15.0); WHITE BLOOD COUNT (AUTO) 6.9 K/uL (4.8-10.8)
[2020-04-29 19:15] LABS: CALCIUM 8.9 mg/dL (8.4-11.0); CREATININE 0.56 mg/dL (0.55-1.30); POTASSIUM 3.3 mmol/L (3.5-5.1)
[2020-04-29] MEDS ORDERED: cefTRIAXone 1 GM VIAL ONE (19:17)
[2020-04-29 19:20] LABS: ALBUMIN 3.4 g/dL (3.4-4.8); TOTAL BILIRUBIN 0.3 mg/dL (0.0-1.0)
[2020-04-29 20:23] VITALS: BP_SYST 162
== END 2020-04-29 20:23 | disposition home or self-care (01) ==
LOC: SED 16:56
DX: L03.114 Cellulitis of left upper limb (principal); B02.9 Zoster without complications
CPT/HCPCS: 36415; 80053; 85025; 87040; 96365; 96375; 99284; J0696; J2270; J2405; J7030

== ENCOUNTER 2021-04-01 15:28 | Emergency (ER) | payer MEDICAID ==
[~2021-04-01] VITALS: Ht 149.9 cm; Wt 86.6 kg
[2021-04-01 15:33] VITALS: BP_SYST 195
--- NOTE | 2021-04-01 15:42 | NUR ---
Placed in room 04 . Placed on pile driver, blood pressure machine and pulse oximeter. To gown for exam. Side rails up.
--- NOTE | 2021-04-01 15:45 | NUR ---
Pt. came in with c/o pelvic pain, tearful states has had the pain and bloating since October and now is concerned something is wrong, states still has regular periods, denies any bleeding or spotting in between, has taken Motrin at home to help relieve pain
--- NOTE | 2021-04-01 16:06 | NUR ---
ER at bedside examining patient.
[2021-04-01 16:31] LABS: BILIRUBIN,URINE NEGATIVE (NEGATIVE); BLOOD, URINE NEGATIVE (NEGATIVE); CLARITY/URINE CLOUDY (CLEAR); COLOR,URINE YELLOW (YELLOW); GLUCOSE,URINE NEGATIVE (NEGATIVE); KETONES,URINE NEGATIVE (NEGATIVE); LEUKOCYTE ESTERASE ,URINE NEGATIVE (NEGATIVE); NITRITE, URINE NEGATIVE (NEGATIVE); PROTEIN URINE NEGATIVE (NEGATIVE)
--- NOTE | 2021-04-01 16:41 | NUR ---
Labs being drawn
[2021-04-01 16:58] LABS: BASOPHILS % (AUTO) 0.3 % (0.0-2.0); EOSINOPHILS # (AUTO) 0.3 K/uL (0.0-0.4); EOSINOPHILS % (AUTO) 2.9 % (0.0-4.0); HEMATOCRIT 41.8 % (36-48); LYMPHOCYTES # (AUTO) 2.5 K/uL (1.0-5.5); LYMPHOCYTES % (AUTO) 28.7 % (20.5-51.5); MEAN CORPUSCULAR HEMOGLOBIN 29 pg (27-31); MEAN CORPUSCULAR HGB CONC 34 % (32-36); MEAN CORPUSCULAR VOLUME 85 fL (79.0-98.0); MONOCYTES # (AUTO) 0.6 K/uL (0.0-1.0); MONOCYTES % (AUTO) 6.5 % (1.7-9.3); NEUTROPHILS # (AUTO) 5.3 K/uL (1.8-7.7); NEUTROPHILS % (AUTO) 61.6 % (40.0-70.0); PLATELET COUNT (AUTO) 269 K/uL (130-430); RED BLOOD CELL COUNT(AUTO) 4.92 MIL/uL (4.2-6.2); RED CELL DISTRIBUTION WIDTH 14.5 % (9.0-15.0); WHITE BLOOD COUNT (AUTO) 8.6 K/uL (4.8-10.8)
[2021-04-01 17:05] LABS: CALCIUM 8.5 mg/dL (8.4-11.0); CREATININE 0.64 mg/dL (0.55-1.30); POTASSIUM 3.3 mmol/L (3.5-5.1)
[2021-04-01 17:11] LABS: ALBUMIN 3.4 g/dL (3.4-4.8); TOTAL BILIRUBIN 0.3 mg/dL (0.0-1.0)
[2021-04-01] MEDS ORDERED: KETOROLAC TROMETHAMINE 60 MG/2 ML VIAL IM ONE (17:30)
--- NOTE | 2021-04-01 18:15 | NUR ---
Patient given written and verbal discharge instructions and verbalizes understanding. ER Dr. Younger discussed with patient the results and treatment provided. Patient in stable condition. ID arm band removed. Patient educated on pain management and to follow up with PMD. Pain Scale 2. Opportunity for questions provided and answered.
[2021-04-01 18:18] VITALS: BP_SYST 159
== END 2021-04-01 18:18 | disposition home or self-care (01) ==
LOC: SED 15:28
DX: R10.31 Right lower quadrant pain (principal); I10 Essential (primary) hypertension; E11.9 Type 2 diabetes mellitus without complications; E78.00 Pure hypercholesterolemia, unspecified
CPT/HCPCS: 36415; 74176; 76376; 80053; 81003; 81025; 83690; 85025; 96372; 99284; J1885

== ENCOUNTER 2021-12-01 17:39 | Inpatient (IN) | payer MEDICAID ==
[~2021-12-01] VITALS: Ht 149.9 cm; Wt 84.4 kg
[2021-12-01 17:48] VITALS: BP_SYST 219
[2021-12-01 18:22] LABS: BASOPHILS # (AUTO) 0.1 K/uL (0.0-0.2)
[2021-12-01 18:41] LABS: BASOPHILS % (AUTO) 0.9 % (0.0-2.0); EOSINOPHILS # (AUTO) 0.2 K/uL (0.0-0.4); EOSINOPHILS % (AUTO) 1.8 % (0.0-4.0); HEMATOCRIT 46.6 % (36-48); HEMOGLOBIN 15.5 g/dL (12.0-16.0); LYMPHOCYTES # (AUTO) 2.7 K/uL (1.0-5.5); LYMPHOCYTES % (AUTO) 21.2 % (20.5-51.5); MEAN CORPUSCULAR HEMOGLOBIN 28 pg (27-31); MEAN CORPUSCULAR HGB CONC 33 % (32-36); MEAN CORPUSCULAR VOLUME 83 fL (79.0-98.0); MONOCYTES # (AUTO) 0.8 K/uL (0.0-1.0); MONOCYTES % (AUTO) 6.2 % (1.7-9.3); NEUTROPHILS % (AUTO) 69.9 % (40.0-70.0); PLATELET COUNT (AUTO) 241 K/uL (130-430); RED BLOOD CELL COUNT(AUTO) 5.58 MIL/uL (4.2-6.2); RED CELL DISTRIBUTION WIDTH 14.4 % (9.0-15.0); WHITE BLOOD COUNT (AUTO) 12.8 K/uL (4.8-10.8)
[2021-12-01] MEDS ORDERED: hydrALAZINE HCL 20 MG/ML VIAL IVP ONE (18:45)
[2021-12-01 18:57] LABS: ANION GAP 9 (5-15); CALCIUM 8.1 mg/dL (8.4-11.0); CHLORIDE 104 mmol/L (98-107); CREATININE 0.74 mg/dL (0.55-1.30); GLUCOSE 104 mg/dL (70-99); POTASSIUM 3.7 mmol/L (3.5-5.1); SODIUM SERUM 137 mmol/L (136-145); UREA NITROGEN, BLOOD 15 mg/dL (8-21)
[2021-12-01 18:58] LABS: GFR AFRICAN AMERICAN 106 mL/min (>90)
[2021-12-01 19:06] LABS: ALANINE AMINOTRANSFERASE 30 U/L (12-78); ALBUMIN 3.5 g/dL (3.4-4.8); ASPARTATE AMINOTRANSFERASE 18 U/L (10-37); TOTAL BILIRUBIN 0.4 mg/dL (0.0-1.0)
[2021-12-01] MEDS ORDERED: cloNIDine HCL 0.1 MG TABLET PO PRN ×2 (19:45→23:45)
[2021-12-01] MEDS ORDERED: ASPIRIN 325 MG TABLET PO ONE (19:45)
[2021-12-01 19:47] LABS: INR 0.9 (0.8-1.2); PROTHROMBIN TIME 9.4 SECS (9.5-12.5)
[2021-12-01 20:22] LABS: BILIRUBIN,URINE NEGATIVE (NEGATIVE); BLOOD, URINE NEGATIVE (NEGATIVE); COLOR,URINE YELLOW (YELLOW); GLUCOSE,URINE NEGATIVE (NEGATIVE); KETONES,URINE 1+ (NEGATIVE); LEUKOCYTE ESTERASE ,URINE TRACE (NEGATIVE); NITRITE, URINE NEGATIVE (NEGATIVE); PROTEIN URINE NEGATIVE (NEGATIVE); UROBILINOGEN,URINE 0.2 (0.2-1.0)
[2021-12-01 20:24] LABS: CLARITY/URINE HAZY (CLEAR)
[2021-12-01 20:40] LABS: BACTERIA,URINE MANY /HPF (None Seen); RBC,URINE 0-3 /HPF (0-3); WBC,URINE 0-3 /HPF (0-3)
[2021-12-01 20:41] LABS: MUCUS,URINE 1+ /LPF (None Seen)
[2021-12-01 20:50] LABS: BARBITURATE, URINE NEGATIVE (NEG <=200); METHAMPHETAMINES SCREEN,URINE NEGATIVE (NEG <=500); URINE AMPHETAMINE NEGATIVE (NEG <=500); URINE METHADONE NEGATIVE (NEG <=200)
[2021-12-01 20:51] LABS: BENZODIAZEPINE, URINE NEGATIVE (NEG <=150); CANNABINOID, URINE NEGATIVE (NEG <=50); COCAINE, URINE NEGATIVE (NEG <=150); OPIATE, URINE NEGATIVE (NEG <=100); PHENCYCLIDINE SCREEN,URINE NEGATIVE (NEG <=25); UR TRICYCLIC ANTIDEPRESSANTS NEGATIVE (NEG <=300); URINE OXYCODONE SCREEN NEGATIVE (NEG <=100); URINE PROPOXYPHENE SCREEN NEGATIVE (NEG <=300)
[2021-12-01 21:21] VITALS: BP_SYST 160
[2021-12-01] MEDS: ACETAMINOPHEN 325 MG TABLET PO PRN (21:43)
[2021-12-01] MEDS ORDERED: DEXTROSE 50% JECT 50 ML DISP.SYRIN IVP PRN (22:30)
[2021-12-01] MEDS ORDERED: INSULIN REGULAR, HUMAN 100 UNITS/ML, 10 ML VIAL (humuLIN R) SUBCUT PRN (22:30)
[2021-12-01] MEDS ORDERED: CARVEDILOL 12.5 MG TABLET (COREG) PO ONE (22:30)
[2021-12-01] MEDS ORDERED: FAMOTIDINE PF 20 MG/2 ML VIAL IVP ONE (22:30)
[2021-12-01] MEDS ORDERED: ACETAMINOPHEN 325 MG TABLET PO PRN (22:30)
[2021-12-01] MEDS ORDERED: cloNIDine HCL 0.2 MG TABLET PO ONE (23:00)
[2021-12-02 00:38] VITALS: BP_SYST 148
[2021-12-02 04:13] VITALS: BP_SYST 139
[2021-12-02 08:17] LABS: BASOPHILS # (AUTO) 0.1 K/uL (0.0-0.2); BASOPHILS % (AUTO) 0.9 % (0.0-2.0); EOSINOPHILS # (AUTO) 0.2 K/uL (0.0-0.4); EOSINOPHILS % (AUTO) 2.6 % (0.0-4.0); HEMATOCRIT 43.1 % (36-48); HEMOGLOBIN 14.4 g/dL (12.0-16.0); LYMPHOCYTES # (AUTO) 1.8 K/uL (1.0-5.5); LYMPHOCYTES % (AUTO) 19.3 % (20.5-51.5); MEAN CORPUSCULAR HEMOGLOBIN 28 pg (27-31); MEAN CORPUSCULAR HGB CONC 33 % (32-36); MEAN CORPUSCULAR VOLUME 83 fL (79.0-98.0); MONOCYTES # (AUTO) 0.6 K/uL (0.0-1.0); MONOCYTES % (AUTO) 6.3 % (1.7-9.3); NEUTROPHILS # (AUTO) 6.5 K/uL (1.8-7.7); NEUTROPHILS % (AUTO) 70.9 % (40.0-70.0); PLATELET COUNT (AUTO) 219 K/uL (130-430); RED BLOOD CELL COUNT(AUTO) 5.18 MIL/uL (4.2-6.2); RED CELL DISTRIBUTION WIDTH 14.8 % (9.0-15.0)
[2021-12-02 08:29] LABS: CREATININE 0.65 mg/dL (0.55-1.30); FREE T4 (FREE THYROXINE) 1.1 ng/dl (0.8-1.5); POTASSIUM 3.9 mmol/L (3.5-5.1); THYROID STIMULATING HORMONE 3.21 uIu/mL (0.36-3.74); TOTAL BILIRUBIN 0.6 mg/dL (0.0-1.0)
[2021-12-02 08:32] VITALS: BP_SYST 131
[2021-12-02 08:37] LABS: WHITE BLOOD COUNT (AUTO) 9.2 K/uL (4.8-10.8)
[2021-12-02] MEDS: FAMOTIDINE PF 20 MG/2 ML VIAL IVP SCH ×2 (09:39→21:14)
[2021-12-02] MEDS: CARVEDILOL 12.5 MG TABLET (COREG) PO SCH ×2 (09:40→21:15)
[2021-12-02] MEDS: lisinopriL 20 MG TABLET PO SCH (09:40)
[2021-12-02] MEDS: ASPIRIN 81 MG TABLET(ECOTRIN) PO SCH (09:41)
[2021-12-02] MEDS: ACETAMINOPHEN 325 MG TABLET PO PRN (09:49)
[2021-12-02 12:00] VITALS: BP_SYST 124
[2021-12-02] MEDS: traMADol HCL HCL 50 MG TABLET (ULTRAM) PO PRN ×2 (16:03→21:21)
[2021-12-02 16:22] VITALS: BP_SYST 121
[2021-12-02 20:00] VITALS: BP_SYST 135
[2021-12-03 00:29] VITALS: BP_SYST 136
[2021-12-03] MEDS: ASPIRIN 81 MG TABLET(ECOTRIN) PO SCH (08:21)
[2021-12-03] MEDS: lisinopriL 20 MG TABLET PO SCH (08:22)
[2021-12-03] MEDS: CARVEDILOL 12.5 MG TABLET (COREG) PO SCH (08:22)
[2021-12-03 08:23] VITALS: BP_SYST 155
[2021-12-03] MEDS: FAMOTIDINE PF 20 MG/2 ML VIAL IVP SCH (08:23)
[2021-12-03] MEDS: traMADol HCL HCL 50 MG TABLET (ULTRAM) PO PRN (08:36)
[2021-12-03 10:45] VITALS: BP_SYST 155
[2021-12-03] MEDS ORDERED: Aspirin Ec PO (12:29)
[2021-12-03] MEDS ORDERED: COR12.5 PO (12:29)
[2021-12-03] MEDS ORDERED: LISI20TA30 PO (12:29)
[2021-12-03 12:57] VITALS: BP_SYST 125
[2021-12-03 13:06] VITALS: BP_SYST 125
== END 2021-12-03 15:45 | disposition home or self-care (01) | DRG 47 ==
LOC: SED 17:39 → STU 19:44
PROVIDERS: ADMIT Internal Medicine; ATTEND Internal Medicine
DX: G45.9 Transient cerebral ischemic attack, unspecified (principal); M32.9 Systemic lupus erythematosus, unspecified; E11.9 Type 2 diabetes mellitus without complications; E66.9 Obesity, unspecified; E78.00 Pure hypercholesterolemia, unspecified; F41.9 Anxiety disorder, unspecified; Z20.822 Contact with and (suspected) exposure to COVID-19; I10 Essential (primary) hypertension; Z87.442 Personal history of urinary calculi; Z87.891 Personal history of nicotine dependence; Z90.49 Acquired absence of other specified parts of digestive tract; Z91.14 Patient's other noncompliance with medication regimen; Z79.2 Long term (current) use of antibiotics; Z68.37 Body mass index [BMI] 37.0-37.9, adult; Z98.891 History of uterine scar from previous surgery
CPT/HCPCS: 36415; 70450-TC; 70551; 71045; 76376; 80053; 80061; 80307; 81000; 82962; 83036; 83735; 84439; 84443; 84484; 85025; 85610-TC; 85730-TC; 86886; 86900; 86901; 87086; 93005; 93306; 93880; 96374; 99285; G0378; J0360; J3490

== ENCOUNTER 2023-04-25 18:12 | Emergency (ER) | payer MEDICAID ==
[~2023-04-25] VITALS: Ht 165.1 cm; Wt 68.9 kg
[~2023-04-25 18:12] MED LIST changes: +Aspirin Ec PO; +COR12.5 PO; +LISI20TA30 PO
[2023-04-25 18:48] VITALS: PULSE 74; RESP 20; TEMP 98.1; O2SAT 99
[2023-04-25] MEDS ORDERED: NABU-140 PO (21:13)
[2023-04-25] MEDS ORDERED: HYDROcodone/ACETAMIN 5-325 MG TAB (NORCO/ VICODIN) PO ONE (21:15)
[2023-04-25 21:40] VITALS: BP_SYST 188; PULSE 71; RESP 20; TEMP 98.1; O2SAT 99
== END 2023-04-25 21:25 | disposition home or self-care (01) ==
LOC: SED 18:12
DX: S89.92XA Unspecified injury of left lower leg, initial encounter (principal); E11.9 Type 2 diabetes mellitus without complications; I10 Essential (primary) hypertension; Z79.899 Other long term (current) drug therapy; X50.0XXA Overexertion from strenuous movement or load, initial encounter; Y93.89 Activity, other specified; Y92.89 Other specified places as the place of occurrence of the external cause; Y99.8 Other external cause status
CPT/HCPCS: 73560-TC; 99283